=== PATIENT | male | born 1960 | race Caucasian/White ===

== ENCOUNTER 2018-06-27 08:32 | Emergency (ER) | payer MEDICARE, MEDICAID ==
[~2018-06-27] VITALS: Ht 185.4 cm; Wt 90.9 kg
[~2018-06-27 08:32] MED LIST: CALC-724 PO; DOCU100C33 PO; FOLI1TAB15 PO; GABA-533 PO; HYDR-3971 PO; MULT1TAB8 PO; SENN-161 PO
[2018-06-27] MEDS ORDERED: SULFAD500 PO (08:44)
[2018-06-27] MEDS ORDERED: AMLO-512 PO (08:44)
[2018-06-27] MEDS ORDERED: NAPR-58 PO (08:44)
[2018-06-27] MEDS ORDERED: TAMS0.4C32 PO (08:44)
[2018-06-27] MEDS ORDERED: DSS100 PO (08:44)
[2018-06-27] MEDS ORDERED: PredniSONE 20 MG TABLET PO ONE (10:15)
[2018-06-27] MEDS ORDERED: DiphenhydrAMINE HCL 50 MG/ML VIAL IM ONE (10:15)
[2018-06-27] MEDS ORDERED: FAMOTIDINE 20 MG TABLET PO ONE (10:15)
[2018-06-27] MEDS ORDERED: ONDANSETRON HCL 4 MG TABLET PO ONE (10:15)
[2018-06-27 10:52] VITALS: BP 147/96
== END 2018-06-27 11:18 | disposition home or self-care (01) ==
LOC: EMS 08:34
DX: T63.441A Toxic effect of venom of bees, accidental (unintentional), initial encounter (principal); R22.1 Localized swelling, mass and lump, neck; R22.0 Localized swelling, mass and lump, head; I10 Essential (primary) hypertension; F17.210 Nicotine dependence, cigarettes, uncomplicated; Z91.013 Allergy to seafood; Z91.018 Allergy to other foods; Z91.048 Other nonmedicinal substance allergy status; Z79.1 Long term (current) use of non-steroidal anti-inflammatories (NSAID); Z79.891 Long term (current) use of opiate analgesic; Z79.899 Other long term (current) drug therapy; Y92.89 Other specified places as the place of occurrence of the external cause
CPT/HCPCS: 96372; 99284; J1200; J7512; Q0162